=== PATIENT | male | born 1995 | race African-American/Black ===

== ENCOUNTER 2017-02-17 18:46 | Emergency (ER) | payer OTHER ==
[~2017-02-17] VITALS: Ht 182.9 cm; Wt 78.0 kg
[~2017-02-17 18:46] MED LIST: Z.0.NO CURRENT MEDS
[2017-02-17 18:49] VITALS: BP 174/97; PULSE 106; RESP 16; TEMP 100; O2SAT 98
[2017-02-17] MEDS ORDERED: IBUPROFEN 600 MG TAB PO ONE (20:00)
--- NOTE | 2017-02-17 20:05 | PD ---
HPI Chief Complaint: ENT Complaint Time Seen by Provider: 19:51 Travel History International Travel<30 days: No Contact w/Intl Traveler<30days: No Traveled to known affect area: No History of Present Illness HPI 21-year-old male here for evaluation of fever, generalized malaise, upper respiratory symptoms, sore throat, headache. Symptoms have been going on for the last 2 days. He has been taking Mucinex, Tylenol, and ibuprofen, and states that his symptoms are intermittently improved after taking these medications, then return. Cough is nonproductive. No abdominal pain, nausea, vomiting, or diarrhea. There are sick contacts at home. PFSH Past Medical History Immunizations Current: Yes Social History Alcohol Use: No Tobacco Use: No Substance Use: No Allergies-Medications (Allergen,Severity, Reaction): Coded Allergies: No Known Allergies (Verified Adverse Reaction, Unknown, 02/17/17) Reported Meds & Prescriptions Reported Meds & Active Scripts Active Reported No Current Meds (Miscellaneous Medication) Misc Review of Systems Except as stated in HPI: all other systems reviewed are Neg Physical Exam Narrative GENERAL: Well-developed, well-nourished, comfortable, no apparent distress. SKIN: Focused skin assessment warm/dry. No rash. HEAD: Atraumatic. Normocephalic. EYES: Pupils equal and round. No scleral icterus. No injection or drainage. ENT: No nasal bleeding or discharge. Mucous membranes pink and moist. NECK: Trachea midline. No JVD. No nuchal rigidity. CARDIOVASCULAR: Regular rate and rhythm. RESPIRATORY: No accessory muscle use. Clear to auscultation. Breath sounds equal bilaterally. GASTROINTESTINAL: Abdomen soft, non-tender, nondistended. MUSCULOSKELETAL: No obvious deformities. No clubbing. No cyanosis. No edema. NEUROLOGICAL: Awake and alert. No obvious cranial nerve deficits. Motor grossly within normal limits. Normal speech. PSYCHIATRIC: Appropriate mood and affect; insight and judgment normal. Data Data Last Documented VS Vital Signs Date Time Temp Pulse Resp B/P (MAP) Pulse Ox O2 Delivery O2 Flow Rate FiO2 02/17/17 18:49 100.0 106 16 174/97 (122) 98 Room Air Orders Orders Influenzae A/B Antigen (02/17/17 19:56) Group A Rapid Strep Screen (02/17/17 19:56) Chest, Single Ap (02/17/17 ) Ibuprofen (Motrin) (02/17/17 20:00) Strep Culture (Group A) (02/17/17 20:10) Oseltamivir (Tamiflu) (02/17/17 20:45) [facility] Medical Decision Making Medical Screen Exam Complete: Yes Emergency Medical Condition: Yes Differential Diagnosis Influenza, viral illness, strep pharyngitis, pneumonia, bronchitis, URI Narrative Course Initial vital signs show heart rate 106, blood pressure 174/97, pulse ox 98% on room air, oral temp of 100F. Influenza A+. Group A strep negative. Chest x-ray shows no acute cardio pulmonary disease. The patient was made aware of all findings. He is resting comfortably and is in no acute distress. He was given a dose of ibuprofen here in the emergency department and we'll also be given a dose of Tamiflu. He was advised to keep fever under control with Tylenol and ibuprofen and to stay hydrated with plenty of fluids. PMD follow-up this week. He was informed on when to return to the emergency department. He verbalizes understanding and agreement with plan. Diagnosis Primary Impression: Influenza A Referrals: Primary Care Physician 3 days Additional Instructions: Follow-up with a primary care physician this week. Stay hydrated with plenty of fluids. Keep fever under control with Tylenol/ibuprofen. Return to the emergency department for worsening symptoms or any other concerns. Scripts Oseltamivir (Tamiflu) 75 Mg Cap 75 MG PO BID for Mgmt Viral Infection for 5 Days, #10 CAP 0 Refills Prov: Santy Pino MD 02/17/17 Disposition: 01 DISCHARGE HOME Condition: Stable Santy Pino MD Feb 17, 2017 20:04
--- NOTE | 2017-02-17 20:19 | RADRPT ---
EXAM DATE/TIME: 02/17/2017 20:01 [facility] COMPARISON: No previous studies available for comparison. INDICATIONS : Cough MEDICAL HISTORY : None. SURGICAL HISTORY : None. ENCOUNTER: Initial ACUITY: 4 - 6 days PAIN SCORE: 4/10 LOCATION: Bilateral chest FINDINGS: A single view of the chest demonstrates the lungs to be symmetrically aerated without evidence of mas s, infiltrate or effusion. The cardiomediastinal contours are unremarkable. Osseous structures are intact. CONCLUSION: No evidence of acute cardiopulmonary disease. Gasper Franklin MD on February 17, 2017 at 20:16 Board Certified Radiologist. This report was verified electronically.
[2017-02-17] MEDS ORDERED: OSEL75 PO (20:41)
[2017-02-17] MEDS ORDERED: OSELTAMIVIR PHOSPHATE 75 MG CAP PO ONE (20:45)
== END 2017-02-17 21:20 | disposition home or self-care (01) ==
LOC: NEPD 18:46
DX: J09.X2 Influenza due to identified novel influenza A virus with other respiratory manifestations (principal)
CPT/HCPCS: 71045; 87081; 87804; 87880; 99284